=== PATIENT | female | born 2005 | race African-American/Black ===

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

== ENCOUNTER 2024-02-04 17:22 | Emergency (ER) | payer MEDICAID ==
[~2024-02-04] VITALS: Ht 175.3 cm; Wt 71.5 kg
[2024-02-04 17:29] VITALS: TEMP 97.8
[2024-02-04] MEDS ORDERED: FAMO-129 PO (18:30)
[2024-02-04] MEDS ORDERED: DIPH25CA83 PO (18:30)
[2024-02-04] MEDS: diphenhydrAMINE 25mg capsule PO ONE (18:45)
[2024-02-04] MEDS: famotidine 20mg tablet PO ONE (18:45)
[2024-02-04] MEDS: triamcinolone acetonide 40mg/ml inj IM ONE (18:47)
[2024-02-04 18:53] VITALS: BP 119/80; PULSE 67; RESP 16; O2SAT 100
== END 2024-02-04 18:52 | disposition home or self-care (01) ==
LOC: ER 17:22
DX: T78.49XA Other allergy, initial encounter (principal); Z91.09 Other allergy status, other than to drugs and biological substances; Z79.899 Other long term (current) drug therapy; X58.XXXA Exposure to other specified factors, initial encounter
CPT/HCPCS: 96372; 99283; J3301; Q0163

== ENCOUNTER 2024-12-19 16:49 | Emergency (ER) | payer MEDICAID ==
[~2024-12-19] VITALS: Ht 177.8 cm; Wt 64.0 kg
[~2024-12-19 16:49] MED LIST changes: +DIPH25CA83 PO; +FAMO-129 PO
[2024-12-19 17:08] VITALS: BP 117/65; PULSE 90; RESP 16; O2SAT 96
[2024-12-19] MEDS ORDERED: METH4TAB81 PO (18:01)
--- NOTE | 2024-12-19 18:02 | Physician Documentation ---
History of Present Illness ~ Chief Complaint: Allergic Reaction Stated Complaint: ALLERGIC REACTION Time Seen by MD: 17:19 Primary Medical Doctor: [facility] Patient is seen today with complaints of allergic reaction to pollen with itchy eyes and swelling around her eyes worse on the right side. Patient admits to sneezing and nasal discharge and states this occurred and started just this morning. Patient has no other concern or complaint at this time. She denies any chest pain or shortness of breath or abdominal pain or nausea, vomiting, diarrhea. Medication Reconciliation Allergies: Coded Allergies: Fish Containing Products (Verified Allergy, Unknown, 12/19/24) pollen extracts (Verified Allergy, Unknown, 08/27/23) Scheduled Diphenhydramine HCl (Benadryl), 1 CAP PO TID Epinephrine (Epipen Jr 2-Sascha), 1 SYR IM ONCE Famotidine (Pepcid), 1 TAB PO Q12H Past Medical History Past Medical History: No Pertinent History Past Surgical History: no surgical history, other Alcohol Use: Occasionally Drug Use: none Lives In: Home Review of Systems Constitutional: Denies: chills, fever, weakness Eyes: Denies: pain, blurred vision ENT: Denies: ear pain, nose pain, throat pain, mouth pain Respiratory: Denies: cough, shortness of breath Cardiovascular: Denies: chest pain, palpitations Gastrointestinal: Denies: abdominal pain, nausea, vomiting Genitourinary: Denies: burning, dysuria Female Genitalia: Denies: vaginal discharge, pelvic pain Neurological: Denies: headache, dizziness Musculoskeletal: Denies: pain, swelling Integumentary: Denies: rash, lesions Allergic/Immunologic: Denies: hives, itching Hematologic/Lymphatic: Denies: no symptoms reported Psychiatric: Denies: depression, anxiety Physical Exam Vital Signs: Heart Rate: 90, Respiratory Rate: 16, BP: 117/65, Pulse Oximetry: 96, Weight: 64.000 Oxygen Flow Rate: 0 Physical Exam General: Awake and Alert, no acute distress. HEENT: Conjunctiva pink, Sclera clear, Mucus Membranes moist. Neck: Supple without masses and tenderness. Resp: Unlabored. Lungs clear to auscultation bilaterally. Heart: Regular Rate and rhythm, normal S1 and S2 without murmur, rub or gallop. Abdomen: Soft and non tender no organomegaly Extremities: No cyanosis,clubbing or edema. Skin: Patient on exam does have edema and swelling noted involving the right eyelids upper and lower consistent with allergic reaction. I do Not appreciate any purulent drainage from the right eye. Progress Results/Orders Results/Orders Vital Signs 12/19/24 17:08 Pulse 90 Resp 16 B/P (MAP) 117/65 Pulse Ox 96 O2 Flow Rate 0 Medical Decision Making Findings Patient is seen today with complaints of allergic reaction to pollen with itchy eyes and swelling around her eyes worse on the right side. Patient admits to sneezing and nasal discharge and states this occurred and started just this morning. Patient has no other concern or complaint at this time. She denies any chest pain or shortness of breath or abdominal pain or nausea, vomiting, diarrhea. Departure Disposition: HOME / SELF CARE / HOMELESS Impression: Primary Impression: Acute allergic reaction Qualified Codes: T78.40XA - Allergy, unspecified, initial encounter Condition: Improved Discharge Instructions: Hives, [id number] Additional Instructions: Patient is seen today with complaints of allergic reaction to pollen with itchy eyes and swelling around her eyes worse on the right side. Patient admits to sneezing and nasal discharge and states this occurred and started just this morning. Patient has no other concern or complaint at this time. She denies any chest pain or shortness of breath or abdominal pain or nausea, vomiting, diarrhea. Referrals: NO PRIMARY CARE PROVIDER (PCP) Prescriptions Methylprednisolone (Medrol Dosepak) 4 Mg Tab.ds.pk 0 PO UD, #21 TAB 0 Refills take 6 Pills Day 1, 5 Pills Day 2, 4 Pills Day 3, 3 Pills Day 4, 2 Pills Day 5 and 1 pill Day 6 Prov: ZEESHAN GARCIA 12/19/24 Signature Scribe Signature: No scribe Attestation: No scribe ZEESHAN GARCIA Dec 19, 2024 18:02
[2024-12-19] MEDS: dexamethasone sod phosphate 10mg/ml inj IM STA (19:12)
== END 2024-12-19 19:13 | disposition home or self-care (01) ==
LOC: ER 16:50
DX: J30.1 Allergic rhinitis due to pollen (principal); Z91.048 Other nonmedicinal substance allergy status; Z79.899 Other long term (current) drug therapy; Z72.89 Other problems related to lifestyle
CPT/HCPCS: 96372; 99283; J1100

== ENCOUNTER 2025-05-10 15:34 | Emergency (ER) | payer MEDICAID ==
[~2025-05-10] VITALS: Ht 175.3 cm; Wt 61.5 kg
[~2025-05-10 15:34] MED LIST changes: +METH4TAB81 PO
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
[2025-05-10 15:56] VITALS: TEMP 98
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
[2025-05-10] MEDS ORDERED: AMOX-117 PO (17:13)
[2025-05-10] MEDS ORDERED: ACET-812 PO (17:13)
[2025-05-10 17:24] VITALS: BP 117/76; PULSE 89; RESP 16; O2SAT 96
[2025-05-10] MEDS ORDERED: HYDR-3965 PO (17:36)
[2025-05-10] MEDS: HYDROcodone/acetaminophen 5mg/325mg tablet PO ONE (17:42)
== END 2025-05-10 17:43 | disposition home or self-care (01) ==
LOC: ER 15:34
DX: S02.32XA Fracture of orbital floor, left side, initial encounter for closed fracture (principal); S05.12XA Contusion of eyeball and orbital tissues, left eye, initial encounter; Z91.013 Allergy to seafood; Z79.899 Other long term (current) drug therapy; Z72.89 Other problems related to lifestyle; Y04.8XXA Assault by other bodily force, initial encounter; Y93.89 Activity, other specified; Y92.89 Other specified places as the place of occurrence of the external cause; Y99.8 Other external cause status
CPT/HCPCS: 70486; 99284